=== PATIENT | female | born 1950 | race Caucasian/White ===

== ENCOUNTER 2017-06-04 00:23 | Inpatient (IN) | payer MEDICARE, MEDICAID ==
[2017-06-04] VITALS (35 sets, daily range): BP systolic 116–147; BP diastolic 48–103; BMI 29.1; BMI 29.0
[2017-06-04 01:48] LABS: APPEARANCE SLT CLOUDY (CLEAR); BACTERIA FEW /hpf (NONE SEEN); BILIRUBIN NEGATIVE (NEGATIVE); COLOR YELLOW (YELLOW); EPITHELIAL CELLS 0-5 /hpf (0-5); GLUCOSE NEGATIVE (NEGATIVE); HYALINE CAST RARE /lpf (NONE SEEN); KETONE NEGATIVE (NEGATIVE); MUCUS <1+ /lpf (NONE SEEN); NITRITE NEGATIVE (NEGATIVE); PROTEIN TRACE mg/dL (NEGATIVE); RED CELLS - URINE RARE /hpf (0-5); SPECIFIC GRAVITY 1.015 (1.005-1.020); UROBILINOGEN NORMAL (NORMAL)
[2017-06-04 02:30] LABS: BASOPHILS 0.4 % (0-2); IMMATURE GRANULOCYTES 0.4 % (0-5); LYMPHOCYTES 16.9 % (15-50); MCHC 25.8 g/dL (31.0-37.0); MEAN PLATELET VOLUME 8.5 fL (7.4-10.4); MONOCYTES 10.8 % (2-11); NEUTROPHILS 69.5 % (40-80); PLATELET COUNT 309 10x3/uL (130-400); RDW 19.1 % (11.5-14.5); WBC 8.4 10x3/uL (4.8-10.8)
[2017-06-04 02:31] LABS: MCH 17.3 pg (26.0-34.0); RBC 1.79 10x6/uL (4.00-5.40)
[2017-06-04 02:32] LABS: HEMOGLOBIN 3.1 g/dL (12-16)
[2017-06-04 03:34] LABS: CALC OSMOLALITY 264 mosm/kg (275-300); CREATININE - SERUM 0.9 mg/dL (0.6-1.3); GLUCOSE 118 mg/dL (74-106); MAGNESIUM - SERUM 1.9 mg/dL (1.8-2.4); POTASSIUM - SERUM 3.8 mmol/L (3.5-5.1); SODIUM 132 mmol/L (136-145); UREA NITROGEN 9 mg/dL (7-18); eGFR NON AFRICAN AMERICAN 67 mL/min (90-120)
[2017-06-04 03:35] LABS: ALBUMIN 3.2 g/dL (3.4-5.0); ALKALINE PHOSPHATASE 83 U/L (46-116); ALT (SGPT) 13 U/L (10-68); BILIRUBIN - TOTAL 0.34 mg/dL (0.2-1.3); CHLORIDE - SERUM 97 mmol/L (98-107); CREATINE KINASE 76 UL (21-215); PROTEIN - SERUM 7.6 g/dL (6.4-8.2); TROPONIN-I < 0.017 ng/mL (0.000-0.060)
--- NOTE | 2017-06-04 04:30 | NUR ---
ARRIVED TO ICU. PRBC INFUSING.
--- NOTE | 2017-06-04 04:47 | NUR ---
ASSESSMENT COMPLETE. S1S2. NSR SHOWING ON MONITOR. RR UNLABORED AND EQUAL. ON ROOM AIR. BOWEL SOUNDS HYPO ACTIVE. C/O MILD NAUSEA. DENIES PAIN. RADIAL AND PEDAL PULSES PALPATED. SKIN PALE; COOL. PERRLA. AAO. SLIGHT WEAKNESS ABLE TO MAKE POSITION CHANGES INDEPENDENTLY. ORAL CARE PROVIDED; MUCOUS MEMBRANES DRY. NO ABD TENDERNESS NOTED. WILL CONTINUE TO MONITOR.
--- NOTE | 2017-06-04 04:55 | NUR ---
2ND UNIT OF 3 PRBC STARTED.
--- NOTE | 2017-06-04 06:41 | NUR ---
2ND PRBC REMAINS INFUSING. NO SIGN OF REACTIONS. VSS. NO DISTRESS NOTED. DENIES DISCOMFORTS.
[2017-06-04 11:20] LABS: HEMATOCRIT 21.2 % (36.0-48.0); HEMOGLOBIN 6.4 g/dL (12-16)
[2017-06-04 11:26] LABS: INR 1.12 (0.85-1.17); PROTIME 14.3 SECONDS (11.6-15.0)
--- NOTE | 2017-06-04 13:25 | NUR ---
C/O CP 04/[address] THOMPSON NOTIFIED. ORDERS RECEIVED.
[2017-06-04 14:13] LABS: CKMB 0.7 U/L (0.0-3.6); CREATINE KINASE 58 UL (21-215)
[2017-06-04 14:18] LABS: TROPONIN-I < 0.017 ng/mL (0.000-0.060)
--- NOTE | 2017-06-04 14:23 | NUR ---
BEDSIDE EGD WITH DR. CHICAS.
--- NOTE | 2017-06-04 19:00 | NUR ---
1900: PRBC checked x2 RNs and infusing with BT and NS as per hospital policy via Right arm PIV.
--- NOTE | 2017-06-04 19:45 | NUR ---
1944: Pt assisted up to bedside commode. Pt gait is steady. Pt requested female nurse. Explained ICU policy and procedure to patient and pt verbalized understanding. Pt voided 350cc of clear yellow UOP and was returned to bed without any difficulty. All monitors reestablished and alarms on.
--- NOTE | 2017-06-04 22:00 | NUR ---
2200: PRBC completed. H/H ordered as per instruction.
[2017-06-04 23:35] LABS: HEMATOCRIT 26.4 % (36.0-48.0); HEMOGLOBIN 8.3 g/dL (12-16)
[2017-06-05] VITALS (18 sets, daily range): BP systolic 108–141; BP diastolic 55–87
--- NOTE | 2017-06-05 | NUR ---
0000: Pt resting in bed with eyes closed at this time. Pt remains SR 70's on CM with SBP 130's. No bleeding has been seen. No change in IVF and Protonix gtt remains at 8 mg/hr.
--- NOTE | 2017-06-05 01:00 | NUR ---
0100: Pt remains SR 70's on CM with SBP 130's. Pt remains resting with eyes closed at this time and no c/o at this time. No bleeding seen at this time.
--- NOTE | 2017-06-05 04:00 | NUR ---
0400: Pt easily arousable to verbal stimuli. Pt with no c/o at this time. Pt remains SR 70's on CM with SBP 130's. No s/s of bleeding are seen at this time.
--- NOTE | 2017-06-05 04:55 | NUR ---
0445: Pt assisted up to bedside commode to urinate. Pt eliminated 200cc of clear yellow UOP. Pt returned to bed per self without difficulty. All alarms reestablished at this time.
[2017-06-05 05:23] LABS: BASOPHILS 0.3 % (0-2); EOSINOPHILS 3.1 % (0-7); HEMATOCRIT 25.9 % (36.0-48.0); HEMOGLOBIN 8.1 g/dL (12-16); IMMATURE GRANULOCYTES 0.4 % (0-5); LYMPHOCYTES 20.3 % (15-50); MCHC 31.3 g/dL (31.0-37.0); MEAN PLATELET VOLUME 10.4 fL (7.4-10.4); MONOCYTES 12.8 % (2-11); NEUTROPHILS 63.1 % (40-80); PLATELET COUNT 291 10x3/uL (130-400); RDW 21.6 % (11.5-14.5); WBC 7.1 10x3/uL (4.8-10.8)
[2017-06-05 05:24] LABS: MCV 76.6 fL (80.0-100.0); RBC 3.38 10x6/uL (4.00-5.40)
--- NOTE | 2017-06-05 05:40 | NUR ---
0540: Pt up OOB and taken to radiology via WC for PA/LAT. Pt gait steady and balanced with no support required. Pt remains on RA with RR16x with SPO2 97%. SR on CM.
[2017-06-05 05:49] LABS: ALBUMIN 2.6 g/dL (3.4-5.0); ALKALINE PHOSPHATASE 69 U/L (46-116); ALT (SGPT) 11 U/L (10-68); BILIRUBIN - TOTAL 0.88 mg/dL (0.2-1.3); CALCIUM 7.6 mg/dL (8.5-10.1); CARBON DIOXIDE 27.1 mmol/L (21.0-32.0); CHLORIDE - SERUM 102 mmol/L (98-107); GLUCOSE 99 mg/dL (74-106); SODIUM 136 mmol/L (136-145)
[2017-06-05 05:50] LABS: CALC OSMOLALITY 269 mosm/kg (275-300); CREATININE - SERUM 0.6 mg/dL (0.6-1.3); POTASSIUM - SERUM 3.2 mmol/L (3.5-5.1); UREA NITROGEN 6 mg/dL (7-18); eGFR NON AFRICAN AMERICAN > 90 mL/min (90-120)
--- NOTE | 2017-06-05 07:40 | NUR ---
RESTING EYES CLOSED. BREAKFAST TRAY PROVIDED. PT WISHES TO SLEEP AT THIS TIME.
--- NOTE | 2017-06-05 10:05 | NUR ---
ASSISTED TO BEDSIDE COMMODE WITH STANDBY ASSIST.
[2017-06-05 11:31] LABS: HEMATOCRIT 26.5 % (36.0-48.0); HEMOGLOBIN 8.2 g/dL (12-16)
--- NOTE | 2017-06-05 12:46 | NUR ---
AWAITING ROOM ASSIGNMENT.
--- NOTE | 2017-06-05 16:21 | NUR ---
FAMILY AT BEDSIDE. STATES PT IS UPSET BECAUSE HER DAUGHTER GOT ARRESTED FOR ANIMAL CRUELTY AND PT NOW HAS A WARRANT FOR HER ARREST. REQUESTS PT TO STAY IN THE HOSPITAL " LONG POSSIBLE. THE AMINTITIES HERE ARE MUCH NICEER THAN IN CARE HOME".
[2017-06-05] MEDS ORDERED: HYDROCODON-ACE1 EAC7 PO (17:06)
[2017-06-05] MEDS ORDERED: CYCLOBENZAPRINE5 MG PO (17:19)
[2017-06-05] MEDS ORDERED: NEURONTIN 300300 MG PO (17:19)
[2017-06-05] MEDS ORDERED: PROZAC20 MG PO (17:20)
[2017-06-05] MEDS ORDERED: PROTONIX40 MG PO (17:20)
[2017-06-05] MEDS ORDERED: XANAX0.25 MG PO (17:20)
[2017-06-05] MEDS ORDERED: CARAFATE1 G PO (17:21)
[2017-06-05 18:52] LABS: HEMATOCRIT 27.2 % (36.0-48.0); HEMOGLOBIN 8.3 g/dL (12-16)
--- NOTE | 2017-06-05 19:30 | NUR ---
SHIFT ASSESSMENT COMPLETED. SEE ASSESSMENT FLOWSHEET. AAOX4. PRIETO WELL. PIV'S SALINE LOCKED. LET AC AREA PIV APPEARS SLIGHTLY SWOLLEN. FLUSHES EASILY. NO S/S OF INFILTRATION. CAN TASTE METALLIC TASTE IN MOUTH WHEN FLUSHED. WILL LEAVE IN FOR NOW. DENIES ANY ABDOMINAL PAIN. WILL CONTINUE TO MONITOR. IS AWARE OF TRANSFER ORDERS AND AWARE OF AWAITING BED ON MED 2.
--- NOTE | 2017-06-05 21:10 | NUR ---
2100 MEDS GIVEN. INFORMED OF NO BED ON THE FLOOR PER CLIENT INSIGHTS CONSULTANT OF YET DUE TO FULL ER.
--- NOTE | 2017-06-05 23:00 | NUR ---
REASSESSMENT COMPLETED. SEE ASSESSMENT FLOWSHEET. ORAL CARE COMPLETED. FOLLOWS COMMANDS OF SQUEEZE MY HANDS AND WIGGLES TOES. ALSO SHOOK HEAD "YES" TO ORAL CARE BOTHERING HIM. KCL RIDER INFUSING-2ND BAG. WILL MONITOR.
[2017-06-06 00:05] VITALS: BP 131/64
--- NOTE | 2017-06-06 00:20 | NUR ---
EYES CLOSED. AWOKE UPON ENTERING. O2 SAT ASSESSED AND TEMP. O2 SAT 96%. WILL MONITOR. DENIES NEEDS.
--- NOTE | 2017-06-06 02:00 | NUR ---
EYES CLOSED. NO ACUTE DISTRESS NOTED. WILL MONITOR.
[2017-06-06 02:05] VITALS: BP 111/70
--- NOTE | 2017-06-06 02:50 | NUR ---
IVPB STARTED TO RT FA PIV. AWOKE. DENIES NEEDS. WILL MONITOR.
--- NOTE | 2017-06-06 03:30 | NUR ---
ADAL SHELTON AT BEDSIDE TO DRAW AM LABS. D/C'ED IV ABX/FLUIDS. WILL MONITOR.
[2017-06-06 03:45] LABS: HEMATOCRIT 26.6 % (36.0-48.0); HEMOGLOBIN 8.1 g/dL (12-16)
[2017-06-06 04:05] VITALS: BP 129/60
[2017-06-06 04:46] LABS: CALC OSMOLALITY 275 mosm/kg (275-300); CALCIUM 7.8 mg/dL (8.5-10.1); CARBON DIOXIDE 28.1 mmol/L (21.0-32.0); CHLORIDE - SERUM 105 mmol/L (98-107); CREATININE - SERUM 0.7 mg/dL (0.6-1.3); GLUCOSE 97 mg/dL (74-106); POTASSIUM - SERUM 3.3 mmol/L (3.5-5.1); SODIUM 140 mmol/L (136-145); UREA NITROGEN 5 mg/dL (7-18); eGFR NON AFRICAN AMERICAN 89 mL/min (90-120)
--- NOTE | 2017-06-06 05:30 | NUR ---
EYES CLOSED. NO NEW ACUTE DISTRESS NOTED. WILL MONITOR.
--- NOTE | 2017-06-06 06:10 | NUR ---
PO KCL GIVEN AND AM CARAFATE. WILL MONITOR.
[2017-06-06 07:00] VITALS: BP 119/69
--- NOTE | 2017-06-06 07:51 | NUR ---
REPORT GIVEN TO KATRIN HOFFMAN. WILL TRANSFER AFTER BREAKFAST AND MORNING MEDICATIONS TO ROOM 2136. PT HAS REQUESTED TO WAIT UNTIL TRANSFER TO SHOWER.
--- NOTE | 2017-06-06 08:55 | NUR ---
PT TRANSFERED TO ROOM 2136 VIA WHEELCHAIR. NO PERSONAL BELONGINGS OTHER THAN SHOES THAT PT IS WEARING. ORIENTED TO ROOM. PILLOW PROVIDED. INFORMED PT'S NURSE KATRIN HOFFMAN THAT PT IN ROOM.
--- NOTE | 2017-06-06 09:17 | NUR ---
PT ARRIVED TO FLOOR VIA WHEELCHAIR. IV RIGTH FA, SL AND LEFT AC, SL. PT IS A&OX4. UP AD MED. PT REQUESTED THAT SHE TAKE A SHOWER. FAMILY AT BEDSIDE. LUNGS CLEAR. PT HAS NO COMPLAINTS/NEEDS AT THIS TIME. BED AT LOWEST POSITION. CALL GTZ IN USE/REACH. SIDE RAILS UP X2. NON SKID SOCKS ON. NO YELLOW BAND. WILL CONTINUE TO MONITOR
[2017-06-06 10:26] LABS: HEMATOCRIT 30.6 % (36.0-48.0); HEMOGLOBIN 9.1 g/dL (12-16)
[2017-06-06 11:14] VITALS: BP 151/58
--- NOTE | 2017-06-06 14:53 | NUR ---
PT IN BED AND WAKE AT THIS TIME. NO NEEDS AT THIS TIME. BED AT LOWEST POSITION. CALL GTZ IN USE/REACH. SIDE RAILS UP X2. WILL CONTINUE TO MONITOR
[2017-06-06 16:18] VITALS: BP 135/63
--- NOTE | 2017-06-06 18:16 | NUR ---
D/C - VERBAL AND WRITTEN INSTRUCTIONS GIVEN TO PT ADN FAMILY. IV TO LEFT AC AND RIGHT FA D/C, CATH TIP INTACT, APPLIED 2X2 AND SECURED WITH TAPE. PT TOLERATED WELL. NO HEART MONITOR TO REMOVE. PT IS GETTING DRESSED ADN THEN WILL D/C
--- NOTE | 2017-06-06 18:35 | NUR ---
PT LEFT FLOOR VIA WHEELCHAIR WITH APPLIER. WILL D/C
--- NOTE | 2017-06-21 15:54 | DS ---
PATIENT:CRYSTAL JACOBO :54 MEDICAL RECORD: [id number] DISCHARGE SUMMARY ADMISSION DATE: 06/04/17 DISCHARGE DATE: 06/06/17 DATE OF ADMISSION: 06/04/2017 DATE OF DISCHARGE: 06/06/2017 DIAGNOSES: 1. Acute gastrointestinal bleed. 2. Urinary tract infection. 3. Gastritis and duodenitis with hemorrhage. 4. Acute blood loss anemia. 5. Generalized weakness. IMAGES AND STUDIES: EGD. It showed patchy mucosa in the cardia. She underwent cauterization and she got an epinephrine injection. HOSPITAL COURSE: The full H&P is listed elsewhere on the chart for this 67-year-old female patient, who presented to the ER with 3-month history of generalized weakness and shortness of breath. She was found to be severely anemic. Her hemoglobin was 3, so she was admitted into the ICU. She underwent serial H&Hs and packed red blood cells for her profound anemia. GI was consulted. She underwent an EGD with cauterization. She was placed on PPI and Carafate. Her H&H did stabilize at 9.1. She was also noted to have UTI. Her cultures were pending at her discharge. She was given antibiotic therapy. Her diet was advanced. She stabilized and moved to the floor. She was thought to be stable to discharge to home to follow up in the outpatient setting. See med rec. TRANSINT:[id number] Voice Confirmation ID: [id number] DOCUMENT ID: [id number] Dictated By: CHRISSY MILES I have interviewed/examined the above patient and agree with these documented findings. CHRISTEL THOMPSON MD at 1110 at 1553 CC: [id number] DICTATION DATE: 06/16/17 0903 TUB PULLER: 06/16/17 1433 DIS IN 06/06/17 [facility] [address] [place] [address]
== END 2017-06-06 18:35 | disposition home or self-care (01) | DRG 378 ==
LOC: D.ER 00:23 → D.ICU 02:38 → D.M2 06-06 09:09
PROVIDERS: Emergency Medicine; Internal Medicine Gastroenterology; ADMIT Family Medicine
PROC: 3E0G8GC Introduction of Other Therapeutic Substance into Upper GI, Via Natural or Artificial Opening Endoscopic (ICD-10-PCS; principal; 2017-06-04 14:00)
DX: K31.811 Angiodysplasia of stomach and duodenum with bleeding (principal); N39.0 Urinary tract infection, site not specified; D62 Acute posthemorrhagic anemia; K29.01 Acute gastritis with bleeding; I10 Essential (primary) hypertension; F41.9 Anxiety disorder, unspecified; F32.9 Major depressive disorder, single episode, unspecified

== ENCOUNTER 2017-08-24 05:37 | Day surgery (SDC) | payer MEDICARE, MEDICAID ==
[2017-08-20 11:39] LABS: HEMATOCRIT 29.5 % (36.0-48.0); HEMOGLOBIN 9.1 g/dL (12-16); MCH 29.8 pg (26.0-34.0); MCHC 30.8 g/dL (31.0-37.0); MCV 96.7 fL (80.0-100.0); MEAN PLATELET VOLUME 8.7 fL (7.4-10.4); RBC 3.05 10x6/uL (4.00-5.40); RDW 15.9 % (11.5-14.5); WBC 6.6 10x3/uL (4.8-10.8)
[~2017-08-24] VITALS: Ht 167.6 cm; Wt 81.6 kg
[~2017-08-24 05:37] MED LIST: CARAFATE1 G PO; CYCLOBENZAPRINE5 MG PO; HYDROCODON-ACE1 EAC7 PO; NEURONTIN 300300 MG PO; PROTONIX40 MG PO; PROZAC20 MG PO; XANAX0.25 MG PO
[2017-08-24] MEDS ORDERED: PROZAC20 MG PO (09:42)
[2017-08-24] MEDS ORDERED: XANAX0.25 MG PO (09:43)
[2017-08-24] MEDS ORDERED: FUROSEMIDE20 MG PO (09:44)
[2017-08-24] MEDS ORDERED: KLOR-CON M2020 MEQ PO (09:45)
[2017-08-24] MEDS ORDERED: HYDROCODON-ACE1 EAC7 PO (09:46)
[2017-08-24] MEDS ORDERED: NEURONTIN 300300 MG PO (09:48)
[2017-08-24 10:01] VITALS: BP 133/64; Ht 167.6 cm; Wt 81.6 kg
--- NOTE | 2017-08-24 12:16 | NUR ---
BOVIE PAD TO RIGHT THIGH. LOT [id number] EXP: 02-26-2019. NO METAL IN BODY. EAR RINGS REMOVED IN HOLDING, BOVIE SITE CLEAR ON REMOVAL.
--- NOTE | 2017-08-26 13:27 | OP ---
PATIENT NAME: CRYSTAL JACOBO MEDICAL RECORD: [id number] :54 LOCATION:D.OPS ADMISSION DATE: SURGEON: ANTHONY DEVLIN MD DATE OF OPERATION: 08/24/2017 PREOPERATIVE DIAGNOSES: 1. Gastric antral vascular ectasias. 2. Iron deficiency anemia requiring transfusions. POSTOPERATIVE DIAGNOSES: 1. Gastric antral vascular ectasias. 2. Iron deficiency anemia requiring transfusions with active bleeding present during the time of endoscopy. PROCEDURES: 1. Esophagogastroduodenoscopy without biopsies. 2. Treatment of gastric antral vascular ectasias with the argon plasma forging engineer. SURGEON: Anthony Devlin MD DATA ENTRY: None. BLOOD LOSS: Less than 25 cc. ANESTHESIA: General. COMPLICATIONS: None. The risks, possible complications, and alternatives to the procedure were explained to the patient. She elects to proceed. OPERATIVE COURSE: The patient was conveyed to the operating room electively on 08/24/2017. General anesthesia was induced by the anesthesia staff. A bite block was inserted. A gastroscope was inserted into the mouth. It was advanced easily into the hypopharynx. The esophagus was easily intubated as were the stomach and duodenum. Upon withdrawal, retroflexion and angulus views were obtained. I then advanced the argon plasma forging engineer. Numerous gastric, antral, and vascular ectasias were present and there was active hemorrhage taking place from several of these. Utilizing the argon plasma forging engineer with the esophageal setting in the forced mode, I ablated all of the gastric antral vascular ectasias that I could identify. I irrigated and aspirated. There was no further bleeding. The endoscope was then withdrawn under direct vision. There is no need for the patient to follow up with me in the office. Should she have a recurrence of melanoma or iron deficiency anemia requiring transfusions, she can call the office and we will put her on the schedule for another treatment utilizing argon plasma forging engineer. TRANSINT:[id number] Voice Confirmation ID: [id number] DOCUMENT ID: [id number] OPERATIVE REPORT [id number] CRYSTAL JACOBO VIRA ANTHONY DEVLIN MD at 1327 CC: FREDO CORNEJO MD and ALEXUS CHICAS DO [id number] DICTATION DATE: 08/24/17 1233 HOSPITAL INSURANCE CLERK: 08/24/17 1258 [facility] 08/24/[address] [facility] [address] [place] [address]
--- NOTE | 2017-08-26 13:27 | HP ---
PATIENT: CRYSTAL JACOBO MEDICAL RECORD: [id number] ACCOUNT: [id number] LOCATION:[facility] : 54 ADMISSION DATE: 08/24/17 HISTORY AND PHYSICAL EXAMINATION HISTORY OF PRESENT ILLNESS: Bleeding. The patient underwent upper endoscopy by Dr. Reynaga. The patient was found to have gastric antral vascular ectasias. She has had a history of iron deficiency anemia, which has required blood transfusions. There is a history and physical examination on the chart. Her history and physical examination is unchanged from her office visit. I am going to plan for an EGD and treatment of the gastric antral vascular ectasias with the argon plasma trouble dispatcher. TRANSINT:[id number] Voice Confirmation ID: [id number] DOCUMENT ID: [id number] ANTHONY DEVLIN MD at 1327 CC: FREDO CORNEJO MD and ALEXUS REYNAGA DO [id number] DICTATION DATE: 08/24/17 1231 MERCERIZER: 08/24/17 1246 [facility] 08/24/17 [place] [id number] [place] [address]
== END 2017-08-24 14:23 | disposition home or self-care (01) ==
LOC: D.OPS 05:37 → D.PAN 10:15 → D.OPS 10:15 → D.PAN 11:15 → D.OPS 14:23
PROVIDERS: Anesthesiology
DX: D50.9 Iron deficiency anemia, unspecified (principal); K31.811 Angiodysplasia of stomach and duodenum with bleeding; K21.9 Gastro-esophageal reflux disease without esophagitis; Z01.812 Encounter for preprocedural laboratory examination

== ENCOUNTER 2017-11-26 19:53 | Observation (INO) | payer MEDICARE, MEDICAID ==
[~2017-11-26] VITALS: Ht 167.6 cm; Wt 89.5 kg
[2017-11-26 19:00] VITALS: BP 132/63
[~2017-11-26 19:53] MED LIST changes: +FUROSEMIDE20 MG PO; +KLOR-CON M2020 MEQ PO
[2017-11-26 20:00] VITALS: BP 125/63
[2017-11-26 21:00] VITALS: BP 132/60
[2017-11-26 21:05] LABS: HEMATOCRIT 23.3 % (36.0-48.0)
[2017-11-26 21:09] LABS: HEMOGLOBIN 6.6 g/dL (12-16)
[2017-11-26 21:10] LABS: INR 1.21 (0.85-1.17); PROTIME 14.8 SECONDS (11.6-15.0)
[2017-11-26 21:11] VITALS: BP 136/57; BMI 31.8
[2017-11-26 21:11] LABS: APTT 29.2 SECONDS (22.8-39.4)
[2017-11-26 22:00] VITALS: BP 120/57; BP 126/78
[2017-11-26 23:00] VITALS: BP 129/58
[2017-11-27] VITALS (12 sets, daily range): BP systolic 122–133; BP diastolic 40–78; Ht 167.6 cm; Wt 89.5 kg
[2017-11-27 03:57] LABS: HEMATOCRIT 25.2 % (36.0-48.0)
[2017-11-27 03:59] LABS: HEMOGLOBIN 7.2 g/dL (12-16)
[2017-11-27 04:48] LABS: ALBUMIN 3.1 g/dL (3.4-5.0); ALKALINE PHOSPHATASE 72 U/L (46-116); ALT (SGPT) 14 U/L (10-68); BILIRUBIN - TOTAL 1.07 mg/dL (0.2-1.3); CALC OSMOLALITY 277 mosm/kg (275-300); CALCIUM 7.7 mg/dL (8.5-10.1); CARBON DIOXIDE 27.7 mmol/L (21.0-32.0); CHLORIDE - SERUM 102 mmol/L (98-107); CREATININE - SERUM 0.7 mg/dL (0.6-1.3); GLUCOSE 137 mg/dL (74-106); POTASSIUM - SERUM 3.3 mmol/L (3.5-5.1); PROTEIN - SERUM 7.6 g/dL (6.4-8.2); SODIUM 139 mmol/L (136-145); UREA NITROGEN 8 mg/dL (7-18); eGFR NON AFRICAN AMERICAN 89 mL/min (90-120)
[2017-11-27 09:27] LABS: HEMATOCRIT 27.5 % (36.0-48.0); HEMOGLOBIN 8.1 g/dL (12-16)
[2017-11-27 09:52] LABS: BASOPHILS 0.8 % (0-2); EOSINOPHILS 5.6 % (0-7); IMMATURE GRANULOCYTES 0.2 % (0-5); LYMPHOCYTES 20.4 % (15-50); MCH 22.8 pg (26.0-34.0); MCHC 29.8 g/dL (31.0-37.0); MCV 76.4 fL (80.0-100.0); MEAN PLATELET VOLUME 10.2 fL (7.4-10.4); MONOCYTES 10.1 % (2-11); NEUTROPHILS 62.9 % (40-80); PLATELET COUNT 369 10x3/uL (130-400); RBC 3.56 10x6/uL (4.00-5.40); RDW 17.5 % (11.5-14.5); WBC 5.9 10x3/uL (4.8-10.8)
== END 2017-11-27 12:19 | disposition home or self-care (01) ==
LOC: D.ICU 19:53 → UNDOADMIN 19:53 → OBSVTIME 19:53 → D.ICU 11-27 12:19
PROVIDERS: Internal Medicine Nephrology
DX: D62 Acute posthemorrhagic anemia (principal); K31.811 Angiodysplasia of stomach and duodenum with bleeding; I10 Essential (primary) hypertension

== ENCOUNTER 2017-11-29 14:10 | Day surgery (SDC) | payer MEDICARE ==
[~2017-11-29] VITALS: Ht 167.6 cm; Wt 89.5 kg
--- NOTE | ~2017-11-29 | OP ---
PATIENT NAME: CRYSTAL JACOBO MEDICAL RECORD: [id number] :54 LOCATION:[facility] ADMISSION DATE: SURGEON: ALEXUS CHICAS DO DATE OF OPERATION: 11/29/2017 PROCEDURE: EGD with argon plasma coagulation for hemostasis and biopsies. 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 SCOPE: Olympus video gastroscope. MEDICATIONS: Propofol 350 mg IV per anesthesia. ESTIMATED BLOOD LOSS: Minimal. COMPLICATIONS: None. FINDINGS: Informed consent was given. The patient was made comfortable with the above medication. After reaching an adequate level of sedation by slow IV push, the patient was placed on her left side. The endoscope was advanced under direct visualization through the mouth to the second portion of the duodenum. The upper, middle, and lower thirds of the esophagus appeared normal. At the GE junction, she had some mild LA class A reflux-induced esophagitis. The endoscope was advanced beyond the GE junction in the stomach and retroflexed to view the cardia and the fundus, which appeared normal. The endoscope was then advanced down to antrum and prepyloric region where gastric antral vascular ectasia without active bleeding was visualized. This mucosa was friable and did ooze blood with contact from the endoscope. The endoscope was advanced beyond the pylorus and the duodenum. The bulb, first portion, and second portion of the duodenum appeared normal. Random biopsies were taken to submit for histology due to the patient's history of anemia. The endoscope was then withdrawn back into the stomach and argon plasma coagulation was performed. Settings for this were forced coag in the esophageal mode. The entire area of vascular ectasia was coagulated successfully. The endoscope was then withdrawn from the patient after the entire stomach was suctioned. The patient tolerated the procedure well and there were no complications. IMPRESSION: 1. LA class A reflux-induced esophagitis. 2. Gastric antral vascular ectasia, status post argon plasma coagulation therapy. PLAN AND RECOMMENDATIONS: 1. Discharge home when recovery parameters are met. 2. Followup biopsy specimen results. 3. Continue current diet. 4. Continue current medications including PPI 40 mg daily and Carafate 1 gram q.i.d. times 2 weeks. 5. We will consider repeating upper endoscopy in 4 weeks versus as needed. TRANSINT:[id number] Voice Confirmation ID: [id number] DOCUMENT ID: [id number] OPERATIVE REPORT [id number] CRYSTAL JACOBO,ALEXUS Hicks DO at 1524 CC: [id number] DICTATION DATE: 11/29/171702 STONE GRADER: 11/29/171940 [facility] 11/29/17 [place] [id number] [place] [id number]
[2017-11-29 14:54] VITALS: BP 131/60; Ht 167.6 cm; Wt 89.5 kg
[2017-11-29 16:09] LABS: HEMATOCRIT 28.9 % (36.0-48.0); HEMOGLOBIN 8.5 g/dL (12-16); MCH 22.5 pg (26.0-34.0); MCHC 29.4 g/dL (31.0-37.0); MCV 76.5 fL (80.0-100.0); MEAN PLATELET VOLUME 10.5 fL (7.4-10.4); RBC 3.78 10x6/uL (4.00-5.40); RDW 19.1 % (11.5-14.5); WBC 5.7 10x3/uL (4.8-10.8)
== END 2017-11-29 18:01 | disposition home or self-care (01) ==
LOC: D.OPS 14:10
PROVIDERS: Anesthesiology
DX: K31.811 Angiodysplasia of stomach and duodenum with bleeding (principal); K21.0 Gastro-esophageal reflux disease with esophagitis; D50.0 Iron deficiency anemia secondary to blood loss (chronic); Z01.812 Encounter for preprocedural laboratory examination

== ENCOUNTER 2018-01-10 11:13 | Day surgery (SDC) | payer MEDICARE ==
[~2018-01-10] VITALS: Ht 167.6 cm; Wt 89.5 kg
--- NOTE | ~2018-01-10 | OP ---
PATIENT NAME: CRYSTAL JACOBO MEDICAL RECORD: [id number] :54 LOCATION:[facility] ADMISSION DATE: SURGEON: ALEXUS CHICAS DO DATE OF OPERATION: 01/10/2018 PROCEDURE: EGD with argon plasma coagulation. 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 SCOPE: Olympus video gastroscope. MEDICATIONS: Propofol 250 mg IV per anesthesia. ESTIMATED BLOOD LOSS: Minimal. COMPLICATIONS: None. FINDINGS: Informed consent was given. The patient was made comfortable with the above medication. After reaching an adequate level of sedation by slow IV push, the patient was placed on her left side. The endoscope was advanced under direct visualization through the mouth to the second portion of the duodenum with ease. The upper, middle, and lower thirds of the esophagus appeared normal. At the GE junction, there was some evidence of mild, LA class A, reflux-induced esophagitis. The endoscope was advanced beyond the GE junction into the stomach and retroflexed to view the cardia and fundus, which appeared normal. The body of the stomach also appeared normal. As you approached the antrum of the stomach in the prepyloric region, the previously identified gastric antral vascular ectasia was again present. It was improved from her last endoscopy status post APC therapy. Improvements were seen in the density of the ectasias. There were areas throughout the antrum that did seem spared from the ectasia, which were not present at the last examination. The lesions were also less friable and less prone to bleeding when APC therapy was initiated. APC was again used on the 40-watt setting with 1 liter per minute flow of argon. The entire area was again treated successfully without any significant bleeding. Again, the duodenum appeared normal down to the second portion. The endoscope was then withdrawn completely from the patient. The patient tolerated the procedure well and there were no complications. IMPRESSION: 1. LA class A reflux-induced esophagitis. 2. GAVE (gastric antral vascular ectasia). PLAN AND RECOMMENDATIONS: 1. Discharge home when recovery parameters are met. 2. Continue current diet. 3. Continue current medications including omeprazole 40 mg daily and Carafate 4 times daily. 4. Repeat EGD in another 4 weeks with argon plasma coagulation therapy until the GAVE is eradicated. TRANSINT:[id number] Voice Confirmation ID: [id number] DOCUMENT ID: [id number] OPERATIVE REPORT [id number] CRYSTAL JACOBO,ALEXUS Hicks DO at 0934 CC: [id number] DICTATION DATE: 01/10/18 1357 RIB STIFFENER AND HEEL DIPPER: 01/10/18 1407 [facility] 01/10/18 [place] [id number] [place] [id number]
[2018-01-10 11:39] VITALS: Ht 167.6 cm; Wt 89.5 kg
[2018-01-10 11:57] LABS: HEMATOCRIT 25.9 % (36.0-48.0); MCH 22.6 pg (26.0-34.0); MCHC 28.6 g/dL (31.0-37.0); MEAN PLATELET VOLUME 8.9 fL (7.4-10.4); RBC 3.28 10x6/uL (4.00-5.40); RDW 19.9 % (11.5-14.5); WBC 6.6 10x3/uL (4.8-10.8)
[2018-01-10 12:06] LABS: HEMOGLOBIN 7.4 g/dL (12-16)
== END 2018-01-10 15:38 | disposition home or self-care (01) ==
LOC: D.OPS 11:13
PROVIDERS: Anesthesiology
DX: K31.819 Angiodysplasia of stomach and duodenum without bleeding (principal); D50.0 Iron deficiency anemia secondary to blood loss (chronic); K21.0 Gastro-esophageal reflux disease with esophagitis; Z01.812 Encounter for preprocedural laboratory examination

== ENCOUNTER 2019-02-12 09:46 | Inpatient (IN) | payer MEDICARE ==
[~2019-02-12] VITALS: Ht 167.6 cm; Wt 79.8 kg
[2019-02-12 10:27] LABS: BASOPHILS 0.2 % (0-2); EOSINOPHILS 1.2 % (0-7); HEMATOCRIT 30.9 % (36.0-48.0); HEMOGLOBIN 9.5 g/dL (12-16); IMMATURE GRANULOCYTES 0.2 % (0-5); LYMPHOCYTES 12.3 % (15-50); MCH 26.5 pg (26.0-34.0); MCHC 30.7 g/dL (31.0-37.0); MCV 86.3 fL (80.0-100.0); MEAN PLATELET VOLUME 9.1 fL (7.4-10.4); MONOCYTES 10.3 % (2-11); NEUTROPHILS 75.8 % (40-80); PLATELET COUNT 345 10x3/uL (130-400); RBC 3.58 10x6/uL (4.00-5.40); WBC 12.2 10x3/uL (4.8-10.8)
[2019-02-12 10:41] LABS: APTT 29.8 SECONDS (22.8-39.4); INR 1.18 (0.85-1.17); PROTIME 14.5 SECONDS (11.6-15.0)
[2019-02-12 10:50] LABS: ALBUMIN 2.8 g/dL (3.4-5.0); ALKALINE PHOSPHATASE 118 U/L (46-116); ALT (SGPT) 44 U/L (10-68); BILIRUBIN - TOTAL 0.26 mg/dL (0.2-1.3); CALC OSMOLALITY 272 mosm/kg (275-300); CALCIUM 8.6 mg/dL (8.5-10.1); CARBON DIOXIDE 26.4 mmol/L (21.0-32.0); CHLORIDE - SERUM 100 mmol/L (98-107); CREATININE - SERUM 0.8 mg/dL (0.6-1.3); GLUCOSE 134 mg/dL (74-106); POTASSIUM - SERUM 3.6 mmol/L (3.5-5.1); PROTEIN - SERUM 8.4 g/dL (6.4-8.2); SODIUM 136 mmol/L (136-145); UREA NITROGEN 10 mg/dL (7-18); eGFR NON AFRICAN AMERICAN 76 mL/min (90-120)
--- NOTE | 2019-02-12 11:04 | NUR ---
PT SITTING UP IN BED DRINKING DR. WELLER AT THIS TIME.
[2019-02-12 11:15] LABS: CKMB 0.9 U/L (0.0-3.6); CREATINE KINASE 61 UL (21-215)
[2019-02-12 11:16] LABS: TROPONIN-I < 0.017 ng/mL (0.000-0.060)
--- NOTE | 2019-02-12 11:28 | NUR ---
urine collected AND SENT TO LAB AT THIS TIME.
[2019-02-12 11:34] LABS: % SATURATION 5 % (15-55); IRON 22 ug/dl (35-150); TOTAL IRON BIND CAPACITY 385 ug/dl (260-445); UNSAT IRON BIND CAPACITY 363 ug/dl (150-375)
[2019-02-12 11:58] LABS: APPEARANCE CLOUDY (CLEAR); BACTERIA MANY /hpf (NONE SEEN); BILIRUBIN NEGATIVE (NEGATIVE); COLOR YELLOW (YELLOW); EPITHELIAL CELLS OCC /hpf (0-5); GLUCOSE NEGATIVE (NEGATIVE); KETONE NEGATIVE (NEGATIVE); MUCUS <1+ /lpf (NONE SEEN); NITRITE POSITIVE (NEGATIVE); PROTEIN 1+ mg/dL (NEGATIVE); RED CELLS - URINE 0-5 /hpf (0-5); WHITE CELLS - URINE >50 /hpf (0-5)
[2019-02-12 12:00] VITALS: BP 120/51
--- NOTE | 2019-02-12 16:23 | NUR ---
AAOX4. ON ROOM AIR, IV RIGHT AC, PATENT, SALINE LOCKED, AMBULATORY WITH ASSISTANCE, DAUGHTER PRESENT, DENIES ANY CURRENT NEEDS OR DISCOMFORTS, BED LOWERED AND LOCKED, CALL LIGHT WITHIN REACH. CPOC
[2019-02-12 17:49] VITALS: BP 152/85
--- NOTE | 2019-02-12 19:30 | NUR ---
PT ALERT AND ANSWERS QUESTIONS APPROPRIATELY. PT CONFUSED TO TIME AND PLACE. PT SMELLS OF URINE BUT BED IS DRY AND DENIES INCONTINENCE. PT HAS RIGHT AC THAT IS INFUSING NS AT 125 ML PER HOUR. PATENT AND NO REDNESS OR TENDERNESS NOTED. PT ON ROOM AIR. DENIES PAIN OR DISCOMFORT AT THIS TIME. CALL LIGHT IN REACH.
[2019-02-12 19:39] VITALS: BP 126/52; BMI 28.4
[2019-02-12 21:25] VITALS: BP 126/52
[2019-02-13 01:19] VITALS: BP 117/54
[2019-02-13 05:29] LABS: BASOPHILS 0.1 % (0-2); EOSINOPHILS 1.7 % (0-7); HEMATOCRIT 27.5 % (36.0-48.0); HEMOGLOBIN 8.4 g/dL (12-16); IMMATURE GRANULOCYTES 0.3 % (0-5); LYMPHOCYTES 14.1 % (15-50); MCH 26.3 pg (26.0-34.0); MCHC 30.5 g/dL (31.0-37.0); MCV 86.2 fL (80.0-100.0); MEAN PLATELET VOLUME 9.7 fL (7.4-10.4); NEUTROPHILS 67.8 % (40-80); PLATELET COUNT 321 10x3/uL (130-400); RBC 3.19 10x6/uL (4.00-5.40); RDW 16.1 % (11.5-14.5); WBC 9.4 10x3/uL (4.8-10.8)
[2019-02-13 05:59] LABS: CALC OSMOLALITY 276 mosm/kg (275-300); CALCIUM 8.2 mg/dL (8.5-10.1); CARBON DIOXIDE 29.7 mmol/L (21.0-32.0); CHLORIDE - SERUM 104 mmol/L (98-107); CREATININE - SERUM 0.7 mg/dL (0.6-1.3); GLUCOSE 107 mg/dL (74-106); POTASSIUM - SERUM 3.5 mmol/L (3.5-5.1); SODIUM 140 mmol/L (136-145); UREA NITROGEN 8 mg/dL (7-18); eGFR NON AFRICAN AMERICAN 89 mL/min (90-120)
--- NOTE | 2019-02-13 07:50 | NUR ---
PT ALERT X 4. BREATH SOUNDS DIMINISHED TO BILAT LOWER LOBES. +2 EDEMA TO BLE. IV TO RIGHT AC, PATENT, DRESSING DCI. PT REPORTING ABDOMEN SORE AND HEADACHE FROM COUGHING SO MUCH. BED LOW, CALL LIGHT IN REACH. NO OTHER NEEDS AT THIS TIME.
[2019-02-13 09:01] VITALS: BP 142/62
[2019-02-13 12:26] VITALS: Ht 167.6 cm; Wt 79.8 kg
[2019-02-13 13:05] VITALS: BP 106/64
[2019-02-13 17:15] VITALS: BP 137/61
[2019-02-13 20:00] VITALS: BP 147/72
--- NOTE | 2019-02-13 20:00 | NUR ---
ALERT RESTING IN BED,DENIES NEEDS AT THIS TIME, SEE SHIFT ASSESSMENT CALL LIGHT IN REACH
[2019-02-14 03:44] VITALS: BP 146/62
[2019-02-14 06:26] VITALS: BP 146/62
--- NOTE | 2019-02-14 07:51 | NUR ---
PT IS RESTING IN BED WITH EYES OPEN. RESPIRATIONS ARE EVEN AND UNLABORED. PT DENIES PRESENCE OF PAIN. PT DENIES DYSURIA. PT DENIES N/V. FAMILY IS AT BEDSIDE. PT REPORTS A FREQUEST DRY COUGH. PT DENIES DYSPNEA. BED IS IN THE LOWEST POSITION. CALL LIGHT AND BEDSIDE TABLE ARE WITHIN REACH. SIDE RAILS X 2. PT DENIES FURTHER NEEDS. WILL CONT TO MONITOR.
[2019-02-14 08:36] LABS: CALC OSMOLALITY 275 mosm/kg (275-300); CALCIUM 8.4 mg/dL (8.5-10.1); CHLORIDE - SERUM 104 mmol/L (98-107); CREATININE - SERUM 0.6 mg/dL (0.6-1.3); GLUCOSE 107 mg/dL (74-106); POTASSIUM - SERUM 3.2 mmol/L (3.5-5.1); SODIUM 140 mmol/L (136-145); eGFR NON AFRICAN AMERICAN > 90 mL/min (90-120)
[2019-02-14 08:38] LABS: BASOPHILS 0.3 % (0-2); EOSINOPHILS 2.3 % (0-7); HEMATOCRIT 27.3 % (36.0-48.0); HEMOGLOBIN 8.4 g/dL (12-16); IMMATURE GRANULOCYTES 0.4 % (0-5); LYMPHOCYTES 16.5 % (15-50); MCH 26.2 pg (26.0-34.0); MCHC 30.8 g/dL (31.0-37.0); MEAN PLATELET VOLUME 9.1 fL (7.4-10.4); MONOCYTES 15.1 % (2-11); NEUTROPHILS 65.4 % (40-80); PLATELET COUNT 316 10x3/uL (130-400); RBC 3.21 10x6/uL (4.00-5.40); RDW 15.9 % (11.5-14.5); UREA NITROGEN 5 mg/dL (7-18)
[2019-02-14 09:30] VITALS: BP 150/69
[2019-02-14 12:49] VITALS: BP 138/70
[2019-02-14] MEDS ORDERED: LEVAQUIN750 MG PO (13:13)
[2019-02-14] MEDS ORDERED: FLORAJEN3 CAPS460 MG PO (13:14)
--- NOTE | 2019-02-14 14:37 | NUR ---
DISCHARGE INSTRUCTIONS GIVEN TO PT AND PT DAUGHTER. PIV REMOVED FROM RIGHT FOREARM WITH CATHETER TIP INTACT. DRESSING APPLIED. ALL QUESTIONS ANSWERED. ALL DISCHARGE PAPERS SIGNED. PT AND PT DAUGHTER DENY FURTHER QUESTIONS/CONCERNS AT THIS TIME. PT TO NOTIFY NURSE WHEN READY FOR TRANSPORT OUT OF ROOM.
--- NOTE | 2019-02-14 15:02 | NUR ---
PT TRANSPORTED FROM ROOM VIA WHEELCHAIR.
--- NOTE | 2019-02-14 15:02 | MORECARE ---
CASE MANAGEMENT DISCHARGE SUMMARY PATIENT: CRYSTAL JACOBO UNIT: [id number] ADM DATE: 02/12/19 AGE: 68 : 54 SEX: F ROOM/BED: D.2203 AUTHOR: KATIE VILLANUEVA PHYSICIAN: REFERRING PHYSICIAN: JAZMIN MARTINEZ MD DATE OF SERVICE: 02/14/19 Discharge Plan Patient Name: CRYSTAL JACOBO Facility: [facility]:[place] : 1950 Planned Disposition: Home Anticipated Discharge Date: Discharge Date: 02/14/2019 Expected LOS: Initial Reviewer: [email or web address] Initial Review Date: 02/12/2019 Generated: 02/14/19 4:02 pm Comments DCP- Discharge Planning Updated by [email or web address]: Nohelia Savage on 02/14/19 1:[address] went to see patient for discharge planning needs & patient had already been discharged Patient Name: CRYSTAL JACOBO Page [phone] at 1502 All edits/amendments must be made on the electronic document DICTATION DATE: 02/14/19 1502 DIRECTOR FEDERAL: MAYKEL 02/14/19 1502 RPT#: [id number] DC DATE:02/14/19 STATUS: DIS IN [facility] [address] [place] [address] END OF REPORT
== END 2019-02-14 15:02 | disposition home or self-care (01) | DRG 690 ==
LOC: D.ER 09:46 → D.MS 15:16
PROVIDERS: Family Medicine; ADMIT Family Medicine; ATTEND Family Medicine
DX: N39.0 Urinary tract infection, site not specified (principal); J45.909 Unspecified asthma, uncomplicated; K31.819 Angiodysplasia of stomach and duodenum without bleeding; K21.9 Gastro-esophageal reflux disease without esophagitis; D64.9 Anemia, unspecified; E87.6 Hypokalemia